=== PATIENT | female | born 1970 | race Hispanic/Latino ===

== ENCOUNTER 2018-09-22 08:47 | Emergency (ER) | payer SELFPAY | END 2018-09-22 11:56 | disposition home or self-care (01) | LOC: ERS 08:47 | DX: T81.89XA Other complications of procedures, not elsewhere classified, initial encounter (principal); E11.9 Type 2 diabetes mellitus without complications | CPT/HCPCS: 99282 ==

== ENCOUNTER 2019-01-23 19:31 | Emergency (ER) | payer SELFPAY ==
[2019-01-23] MEDS ORDERED: HYDROcodone/Acetaminophen 10/325 mg Tablet ONE (19:57)
[2019-01-23] MEDS ORDERED: Adacel (T-DAP) 0.5 ML SYRINGE ONE (19:57)
== END 2019-01-23 20:43 | disposition home or self-care (01) ==
LOC: ERS 19:31
DX: T23.231A Burn of second degree of multiple right fingers (nail), not including thumb, initial encounter (principal); E11.9 Type 2 diabetes mellitus without complications; X10.2XXA Contact with fats and cooking oils, initial encounter
CPT/HCPCS: 36416; 90471; 90715